=== PATIENT | male | born 1945 | race Caucasian/White ===

== ENCOUNTER 2016-11-13 18:09 | Emergency (ER) | payer MEDICARE ==
[~2016-11-13 18:09] MED LIST: ACTOS30 PO; ATEN100 PO; BEN25 PO; C5 PO; CARTIA XT180 MG/24 PO; CARTIA XT300 MG/24 PO; COSOPT OPH; COUMADIN4 MG PO; DERMATRAN TOP; DIGITEK0.125 MG PO; DILT-XR240 MG PO; FISH-EPA1000 MG PO; FLOMAX4 PO; HUMULIN SC; INSNOV7030 SC; JANTOVEN4 MG PO; JANTOVEN5 MG PO; JANUVIA100 MG PO; KDUR10 PO; KLONO1 PO; KLOR-CON M2020 MEQ PO; L40 PO; LAN125 PO; LIPITOR80 MG PO; MELA3 PO; METHOC500B PO; MICRO-K10 MEQ PO; MSCONT15 PO; Mega Red PO; NEUR300 PO; NEUR600 PO; NIASPAN750 PO; NYQUIL PO; RESTORIL30 MG PO; ROBITUSS P7.5 MG/5 M PO; T PO; XALAT OPH; XANAX1 MG PO; ZETIA PO; ZINC GLUCON50 MG PO
[2016-11-13 18:54] LABS: BASOPHILS 0.3 %; BASOPHILS ABSOLUTE 0.04 10/3/uL (0.0-0.16); EOSINOPHILS 1.4 %; EOSINOPHILS ABSOLUTE 0.19 10/3/uL (0.0-0.53); ER CBC TAT 0 Hrs 05 Mins; HEMATOCRIT 45.7 % (40.0-51.0); HEMOGLOBIN 16.2 g/dL (13.6-17.8); IMMATURE GRANULOCYTES 1.4 %; IMMATURE GRANULOCYTES ABSOLUTE 0.19 10/3/uL (0.0-0.11); LYMPHOCYTES 24.7 %; LYMPHOCYTES ABSOLUTE 3.45 10/3/uL (0.67-4.30); MEAN CORPUS HGB CONC 35.4 g/dL (32.0-36.0); MEAN CORPUSCULAR HEMOGLOB 32.5 pg (26.0-34.0); MEAN CORPUSCULAR VOLUME 91.8 fL (80-100); MONOCYTES 9.5 %; MONOCYTES ABSOLUTE 1.32 10/3/uL (0.21-1.20); NEUTROPHILS 62.7 %; NEUTROPHILS ABSOLUTE 8.76 10/3/uL (2.02-8.40); PLATELET COUNT 205 10/3/uL (150-400); RBC DISTRIBUTION WIDTH 13.7 % (12.0-16.0); RED CELL COUNT 4.98 10/6/uL (4.7-6.1)
[2016-11-13 18:55] LABS: MANUAL DIFF NO %
[2016-11-13 19:08] LABS: A/G RATIO 0.8 (0.7-1.9); ALBUMIN 3.6 G/DL (3.5-5.0); ALKALINE PHOSPHATASE 131 U/L (45-117); CALCIUM, SERUM 8.3 MG/DL (8.5-10.4); CHLORIDE, SERUM 102 MMOL/L (96-112); CO2 (CARBON DIOXIDE) 28 MMOL/L (24-34); CREATININE 0.78 MG/DL (0.70-1.30); GFR AFRICAN AMERICAN 105 ML/MIN (>=60); GFR NON AFRICAN AMERICAN 90 ML/MIN (>=60); GLOBULIN 4.3 G/DL (2.5-4.1); POTASSIUM, SERUM 3.3 MMOL/L (3.5-5.3); SGOT(AST) 19 U/L (5-40); SGPT(ALT) 33 U/L (5-65); SODIUM, SERUM 139 MMOL/L (135-148); TOTAL BILIRUBIN 0.7 MG/DL (0-1.2); TOTAL PROTEIN 7.9 G/DL (6.0-8.5)
[2016-11-13 19:09] LABS: BUN (BLOOD UREA NITROGEN) 13 MG/DL (6-23); GLUCOSE, SERUM 227 MG/DL (60-99)
== END 2016-11-13 21:40 | disposition home or self-care (01) ==
LOC: ER 18:09
PROVIDERS: Physician Assistant
DX: M54.5 Low back pain (principal); G89.29 Other chronic pain; E11.65 Type 2 diabetes mellitus with hyperglycemia; E87.6 Hypokalemia; I50.9 Heart failure, unspecified; I48.91 Unspecified atrial fibrillation; G47.30 Sleep apnea, unspecified; Z85.038 Personal history of other malignant neoplasm of large intestine; Z88.1 Allergy status to other antibiotic agents; Z88.5 Allergy status to narcotic agent; Z79.01 Long term (current) use of anticoagulants; Z79.4 Long term (current) use of insulin; Z79.899 Other long term (current) drug therapy
CPT/HCPCS: 72131; 72192; 80053; 85025; 90471; 90714; 96374; 99284